=== PATIENT | male | born 1965 | race American Indian/Alaskan Native ===

== ENCOUNTER 2017-07-15 20:34 | Emergency (ER) | payer OTHER ==
[2017-07-15 21:24] LABS: Hemoglobin 14.1 gm/dl (11.8-15.2); Mean Corpuscular HGB Conc 34 % (32-34); Mean Corpuscular Hemoglobin 30 pg (28-32); Mean Corpuscular Volume 88 fl (84-94); Red Blood Count 4.75 M/mm3 (3.65-5.03)
[2017-07-15 21:25] LABS: Basophils # (Auto) 0.1 K/mm3 (0.0-0.1); Basophils % (Auto) 0.9 % (0.0-1.8); Eosinophils # (Auto) 0.3 K/mm3 (0.0-0.4); Eosinophils % (Auto) 3.2 % (0.0-4.3); Lymphocytes # (Auto) 1.9 K/mm3 (1.2-5.4); Lymphocytes % (Auto) 23.5 % (13.4-35.0); Monocytes # (Auto) 0.7 K/mm3 (0.0-0.8); Monocytes % (Auto) 9.3 % (0.0-7.3); Platelet Count 260 K/mm3 (140-440); Red Cell Distribution Width 13.6 % (13.2-15.2)
[2017-07-15 21:28] LABS: Alanine Aminotransferase 27 units/L (7-56); Albumin 4.5 g/dL (3.9-5); BUN/Creatinine Ratio 10; Blood Urea Nitrogen 10 mg/dL (9-20); Calcium 9.6 mg/dL (8.4-10.2); Hemolysis Index 13
[2017-07-15] MEDS ORDERED: CATAPRES PO ONE (23:31)
[2017-07-15] MEDS ORDERED: ASPIRIN PO ONE (23:34)
--- NOTE | 2017-07-15 23:34 | Emergency Department Report ---
ED General Adult HPI - General Chief complaint: High BP Stated complaint: HIGH BLOOD PRESURE Time Seen by Provider: 07/15/17 23:26 Source: patient Mode of arrival: Ambulatory Limitations: No Limitations - History of Present Illness Initial comments: 51-year-old male with a past medical history hypertension and CAD with stent 3 placed in 2013 presents to the hospital complains of asymptomatic hypertension. [facility]. Repeat BP at home remained elevated so patient came to the ER for evaluation. He complains of mild 1/10 headache but denies blurred vision, chest pain, shortness of breath, nausea, vomiting, or diaphoresis. Patient has been off all medications the last several years due to lack of insurance. He also does not take aspirin despite having 3 stents placed in 2013 with [facility]. - Related Data Previous Rx's Medication Instructions Recorded Last Taken Type Aspirin [Aspirin EC] 325 mg PO DAILY #30 tablet. 07/15/17 Unknown Rx Metoprolol [Lopressor TAB] 50 mg PO BID #60 tablet 07/15/17 Unknown Rx Allergies Allergy/AdvReac Type Severity Reaction Status Date / Time No Known Allergies Allergy Verified 07/15/17 20:46 ED Review of Systems ROS: Stated complaint: HIGH BLOOD PRESURE Other details as noted in HPI Comment: All other systems reviewed and negative ED Past Medical Hx - Past Medical History Previous Medical History?: Yes Hx Hypertension: Yes - Surgical History Past Surgical History?: Yes Additional Surgical History: cardiac stent x , 2013 - Social History Smoking Status: Never Smoker Substance Use Type: None - Medications Home Medications: Home Medications Medication Instructions Recorded Confirmed Last Taken Type Aspirin [Aspirin EC] 325 mg PO DAILY #30 tablet. 07/15/17 Unknown Rx Metoprolol [Lopressor TAB] 50 mg PO BID #60 tablet 07/15/17 Unknown Rx ED Physical Exam - General Limitations: No Limitations - Other Other exam information: General: No limitations, patient is alert in no acute distress Head exam: Atraumatic, normocephalic Eyes exam: Normal appearance, pupils equal reactive to light, extraocular movements intact ENT: Moist mucous membrane, normal oropharynx Neck exam: Normal inspection, full range of motion, no meningismus nontender Respiratory exam: Clear to auscultation bilateral, no wheezes, rales, crackles Cardiovascular: Normal rate and rhythm, normal heart sounds Abdomen: Soft, nondistended, and nontender, with normal bowel sounds, no rebound, or guarding Extremity: Full range of motion normal inspection no deformity Back: Normal Inspection, full range of motion, no tenderness Neurologic: Alert, oriented x3, cranial nerves intact, no motor or sensory deficit Psychiatric: normal affect, normal mood Skin: Warm, dry, intact ED Course Vital Signs 07/15/17 07/16/17 07/16/17 20:37 00:04 00:05 Temperature 98.7 F Pulse Rate 79 66 Respiratory 18 10 L 20 Rate Blood Pressure 166/107 O2 Sat by Pulse 97 98 100 Oximetry 07/16/17 07/16/17 07/16/17 00:10 00:16 00:17 Temperature Pulse Rate 76 65 64 Respiratory 15 5 L 10 L Rate Blood Pressure 174/110 174/110 174/110 O2 Sat by Pulse 99 98 97 Oximetry 07/16/17 07/16/17 07/16/17 00:20 00:30 00:46 Temperature Pulse Rate 61 64 62 Respiratory 13 12 13 Rate Blood Pressure 166/106 174/110 165/101 O2 Sat by Pulse 98 98 97 Oximetry 07/16/17 01:00 Temperature Pulse Rate 64 Respiratory 13 Rate Blood Pressure 141/97 O2 Sat by Pulse 96 Oximetry - Consultations Consultation #1: 07/15/17 23:[address] 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 Rec beta wang metoprolol 50mg bid, asa daily, and f/u in office ED Medical Decision Making - Lab Data Result diagrams: 07/15/17 20:56 07/15/17 20:56 Lab Results 07/15/17 07/15/17 Range/Units 20:56 20:56 WBC 8.0 (4.5-11.0) K/mm3 RBC 4.75 (3.65-5.03) M/mm3 Hgb 14.1 (11.8-15.2) gm/dl Hct 42.0 (35.5-45.6) % MCV 88 (84-94) fl MCH 30 (28-32) pg MCHC 34 (32-34) % RDW 13.6 (13.2-15.2) % Plt Count 260 (140-440) K/mm3 Lymph % (Auto) 23.5 (13.4-35.0) % [place] % (Auto) 9.3 H (0.0-7.3) % Eos % (Auto) 3.2 (0.0-4.3) % Baso % (Auto) 0.9 (0.0-1.8) % Lymph # 1.9 (1.2-5.4) K/mm3 [place] # 0.7 (0.0-0.8) K/mm3 Eos # 0.3 (0.0-0.4) K/mm3 Baso # 0.1 (0.0-0.1) K/mm3 Add Manual Diff Complete Seg Neutrophils % 63.1 (40.0-70.0) % Seg Neutrophils # 5.1 (1.8-7.7) K/mm3 Sodium 143 (137-145) mmol/L Potassium 3.9 (3.6-5.0) mmol/L Chloride 101.9 (98-107) mmol/L Carbon Dioxide 29 (22-30) mmol/L Anion Gap 16 mmol/L BUN 10 (9-20) mg/dL Creatinine 1.0 (0.8-1.5) mg/dL Estimated GFR > 60 ml/min BUN/Creatinine Ratio 10 % Glucose 100 (75-100) mg/dL Calcium 9.6 (8.4-10.2) mg/dL Total Bilirubin 0.40 (0.1-1.2) mg/dL AST 25 (5-40) units/L ALT 27 (7-56) units/L Alkaline Phosphatase 57 (35-129) units/L Total Protein 7.1 (6.3-8.2) g/dL Albumin 4.5 (3.9-5) g/dL Albumin/Globulin Ratio 1.7 % - Medical Decision Making BP improved after clonidine. Patient remains asymptomatic and feels fine. Patient will be started on a beta wang metoprolol 50 mg twice a day and aspirin. Patient encouraged to record his blood pressure daily and to follow up with the sales account associate and a primary care doctor. - Differential Diagnosis hypertensive urgency, hypertensive emergency, medication noncompliance Critical Care Time: No Critical care attestation.: If time is entered above; I have spent that time in minutes in the direct care of this critically ill patient, excluding procedure time. ED Disposition Clinical Impression: Uncontrolled hypertension, Hx of heart artery stent, Noncompliance with medication regimen Disposition: - TO HOME OR SELFCARE Is pt being admited?: No Does the pt Need Aspirin: No Condition: Stable Instructions: Metoprolol (By mouth), Hypertension (ED) Additional Instructions: Take the medication as prescribed. Metoprolol may cause your heart rate to decrease and will also lower your blood pressure. Continue to monitor your blood pressure and heart rate while taking the medication and report these findings to your followup doctor. Return is symptoms worsen as indicated by the discharge instructions. Follow-up with the sales account associate and primary care provided Prescriptions: Aspirin [Aspirin EC] 325 mg PO DAILY #30 tablet. Metoprolol [Lopressor TAB] 50 mg PO BID #60 tablet Referrals: [facility] [Provider Group] - 3-5 Days LUI BLOCK MD [Staff Physician] - 3-5 Days Time of Disposition: 01:
[2017-07-16 01:06] VITALS: BP 141/97
== END 2017-07-16 01:40 | disposition home or self-care (01) ==
LOC: ED 20:34
DX: I10 Essential (primary) hypertension (principal); Z95.5 Presence of coronary angioplasty implant and graft; Z91.14 Patient's other noncompliance with medication regimen; Z79.82 Long term (current) use of aspirin
CPT/HCPCS: 36415; 80053; 85025; 99283